=== PATIENT | female | born 2000 | race African-American/Black ===

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

== ENCOUNTER 2022-01-05 19:06 | Emergency (ER) | payer OTHER | END 2022-01-05 21:02 | disposition left against medical advice (07) | LOC: ERS 19:06 | DX: Z53.21 Procedure and treatment not carried out due to patient leaving prior to being seen by health care provider (principal) ==

== ENCOUNTER 2022-01-29 18:40 | Emergency (ER) | payer OTHER | END 2022-01-29 20:26 | disposition left against medical advice (07) | LOC: ERS 18:40 | DX: Z53.21 Procedure and treatment not carried out due to patient leaving prior to being seen by health care provider (principal) ==

== ENCOUNTER 2023-08-06 21:32 | Emergency (ER) | payer OTHER, SELFPAY ==
[2023-08-06] MEDS ORDERED: Acetaminophen 500 MG TAB ONE (21:57)
[2023-08-06] MEDS ORDERED: Ketorolac Tromethamine 30 MG (1 mL) VIAL ONE (21:57)
[2023-08-06 22:53] LABS: SARS-CoV-2 NAA Rapid Test Not Detected (NotDetected)
== END 2023-08-06 23:13 | disposition home or self-care (01) ==
LOC: ERS 21:32
DX: J02.9 Acute pharyngitis, unspecified (principal)
CPT/HCPCS: 87081; 87430; 96372; 99283; J1885